=== PATIENT | male | born 1940 | race Caucasian/White ===

== ENCOUNTER 2018-08-25 11:44 | Emergency (ER) | payer OTHER ==
[~2018-08-25] VITALS: Ht 167.6 cm; Wt 93.9 kg
[2018-08-25] MEDS ORDERED: VASOTEC10 MG (13:17)
[2018-08-25] MEDS ORDERED: METFORMIN HCL500 MG (13:17)
[2018-08-25] MEDS ORDERED: SYNTHROID50 MCG (13:19)
== END 2018-08-25 16:25 | disposition home or self-care (01) ==
LOC: ER 12:03
DX: S40.011A Contusion of right shoulder, initial encounter (principal); M54.2 Cervicalgia; W18.09XA Striking against other object with subsequent fall, initial encounter; Y93.89 Activity, other specified; Y92.018 Other place in single-family (private) house as the place of occurrence of the external cause; Y99.8 Other external cause status